=== PATIENT | male | born 1970 | race Caucasian/White ===

== ENCOUNTER 2016-11-04 11:36 | Emergency (ER) | payer SELFPAY ==
[2016-11-04] MEDS ORDERED: HYDROCHLOROTHIA25 MG PO (18:42)
[2016-11-04] MEDS ORDERED: ZESTRIL40 MG PO (18:42)
[2016-11-04] MEDS ORDERED: TOPROL XL50 MG PO (18:43)
== END 2016-11-04 15:50 | disposition short-term general hospital (02) ==
LOC: ER 11:36 → RT 11:39 → ER 15:50
DX: R07.9 Chest pain, unspecified (principal); R06.00 Dyspnea, unspecified; E87.6 Hypokalemia; R73.9 Hyperglycemia, unspecified; N28.9 Disorder of kidney and ureter, unspecified; I10 Essential (primary) hypertension; Z79.899 Other long term (current) drug therapy; Z87.891 Personal history of nicotine dependence

== ENCOUNTER 2017-01-15 14:17 | Emergency (ER) | payer SELFPAY ==
[~2017-01-15] VITALS: Ht 170.2 cm; Wt 117.9 kg
[~2017-01-15 14:17] MED LIST: HYDROCHLOROTHIA25 MG PO; TOPROL XL50 MG PO; ZESTRIL40 MG PO
== END 2017-01-15 15:45 | disposition short-term general hospital (02) ==
LOC: ER 14:17
DX: R06.02 Shortness of breath (principal); R07.9 Chest pain, unspecified; G47.30 Sleep apnea, unspecified; K21.9 Gastro-esophageal reflux disease without esophagitis; E78.5 Hyperlipidemia, unspecified; I10 Essential (primary) hypertension; F17.210 Nicotine dependence, cigarettes, uncomplicated; Z79.82 Long term (current) use of aspirin; Z79.899 Other long term (current) drug therapy; Z98.890 Other specified postprocedural states